=== PATIENT | male | born 1990 | race Hispanic/Latino ===

== ENCOUNTER 2020-11-23 21:35 | Emergency (ER) | payer OTHER, SELFPAY ==
[2020-11-23] MEDS ORDERED: methylPREDNISolone Sod Succ/PF 125 MG/2 ML VIAL ONE (23:21)
== END 2020-11-23 23:30 | disposition home or self-care (01) ==
LOC: ERS 21:35
DX: M10.9 Gout, unspecified (principal)
CPT/HCPCS: 96372; 99283; J2930

== ENCOUNTER 2022-06-30 22:39 | Emergency (ER) | payer SELFPAY | END 2022-07-01 01:16 | disposition home or self-care (01) | LOC: ERS 22:39 | DX: J11.1 Influenza due to unidentified influenza virus with other respiratory manifestations (principal) | CPT/HCPCS: 87804; 99283 ==